=== PATIENT | male | born 1980 | race Asian ===

== ENCOUNTER 2022-03-02 15:54 | Emergency (ER) | payer MEDICAID ==
[~2022-03-02] VITALS: Ht 167.6 cm; Wt 78.0 kg
[2022-03-02] MEDS ORDERED: ASCO500C6 PO (16:15)
[2022-03-02] MEDS ORDERED: INDO50CA92 PO (16:15)
[2022-03-02] MEDS ORDERED: TURM1CAP2 PO (16:15)
--- NOTE | 2022-03-02 16:16 | NUR ---
DR WAGNER AT BEDSIDE FOR EVALUATION.
[2022-03-02 16:28] LABS: HEMATOCRIT 46.5 % (36.7-47.1); MEAN CORPUSCULAR HEMOGLOBIN 29.8 uug (23.8-33.4); PLATELET COUNT (AUTO) 267 K/uL (152-348)
[2022-03-02] MEDS ORDERED: DEXAMETHASONE SOD PHOSPHATE 10 MG INJ ONE (16:28)
[2022-03-02] MEDS ORDERED: KETOROLAC TROMETHAMINE 15 MG INJ ONE (16:28)
[2022-03-02] MEDS ORDERED: KETOROLAC TROMETHAMINE 15 MG INJ IVP ONE (16:30)
[2022-03-02] MEDS ORDERED: DEXAMETHASONE SOD PHOSPHATE 4 MG INJ IV ONE (16:30)
[2022-03-02 16:34] LABS: CARBON DIOXIDE 30 mmol/L (21-32); CHLORIDE 102 mmol/L (98-107); CREATININE 1.4 mg/dL (0.6-1.3); GLUCOSE 93 mg/dL (74-106); POTASSIUM 3.9 mmol/L (3.5-5.1); UREA NITROGEN, BLOOD 23 mg/dL (7-18)
[2022-03-02 16:48] LABS: ALANINE AMINOTRANSFERASE 52 U/L (16-63); ALKALINE PHOSPHATASE 64 U/L (50-136); ASPARTATE AMINOTRANSFERASE 21 U/L (15-37); BILIRUBIN,DIRECT 0.1 mg/dL (0.0-0.2); BILIRUBIN,TOTAL 0.7 mg/dL (0.2-1.0)
[2022-03-02 17:16] VITALS: BP 129/83
--- NOTE | 2022-03-02 17:17 | NUR ---
Patient discharged to home in stable condition. Written and verbal after care instructions given. Patient verbalizes understanding of instructions. Stressed follow up or return to ER for worsening s/s.
== END 2022-03-02 17:32 | disposition home or self-care (01) ==
LOC: ER 15:59
DX: R07.89 Other chest pain (principal); N18.9 Chronic kidney disease, unspecified; R94.31 Abnormal electrocardiogram [ECG] [EKG]
CPT/HCPCS: 36415; 71045; 80048; 80076; 83880; 84484; 85025; 85379; 85730; 93005; 96374; 96375; 99285; J1100; J1885; A4663